=== PATIENT | female | born 1930 | race Caucasian/White ===

== ENCOUNTER → 2017-12-07 | Outpatient (CLI) | payer MEDICARE ==
[~2017-12-07] MED LIST: ALBU2.5V36 INH; ALBU8.5H12 IH; AMLO2.5T74 PO; ASC500 PO; ASPI-715 PO; BEN100 PO; CALC500T6 PO; CHOL200022 PO; CHOL500045 PO; CYCL10TA29 PO; DICL100G39 TOP; DONE10TA38 PO; DONE5TAB29 PO; FERR27TA3 PO; LEVO200T50 PO; LEVO25TA61 PO; LOR5/325 PO; LOVA20TA99 PO; METH25TA7 PO; MULT1TAB54 PO; NAPR500T31 PO; OXYGENHOME INH; PAN40 PO; PRED20TA6 PO; PROP20TA56 PO; PROP40TA45 PO; SIMV5TAB60 PO; SPIR1TAB26 PO; SUC1 PO
== END ==
LOC: ZZSPRING 00:43
PROVIDERS: ATTEND Family Medicine
DX: E03.9 Hypothyroidism, unspecified (principal); I10 Essential (primary) hypertension
CPT/HCPCS: 36415; 82310; 82374; 82435; 82565; 82947; 84132; 84295; 84443; 84520

== ENCOUNTER → 2018-01-27 | Outpatient (CLI) | payer MEDICARE, MEDICAID ==
[~2018-01-27] MED LIST changes: +RANI-318 PO
--- NOTE | 2018-01-27 09:01 | RADIOLOGY IMAGING REPORT ---
FACILITY: [facility] PATIENT NAME: Malini Thao : 1930 MR: [id number] V: [id number] EXAM DATE: ORDERING PHYSICIAN: SOFIA GARCIA TECHNOLOGIST: Location: [facility] Patient: Malini Thao : 1930 Visit/Account:[id number] Date of Sevice: 01/27/2018 ABD SINGLE ORGAN/QUAD/FOLLOWUP HISTORY: ruq pain COMPARISON: CT February 21, 2014 FINDINGS: Gallbladder: Unremarkable; no stones or sludge. Liver: Negative. Common duct: Normal, 4.7 mm diameter. Pancreas: Partially obscured by bowel, visualized aspects unremarkable. Right kidney: Right kidney measures 7.7 cm in length. No evidence of hydronephrosis Upper abdominal aorta and IVC: Patent. Ascites: None visualized. IMPRESSION: Unremarkable right upper quadrant ultrasound Report Dictated By: Sabina Colbert MD at 01/27/2018 8:51 AM Report E-Signed By: Sabina Colbert MD at 01/27/2018 8:56 AM WSN:[email or web address]
== END ==
LOC: US 00:52
PROVIDERS: ATTEND Family Medicine
DX: R10.11 Right upper quadrant pain (principal)
CPT/HCPCS: 76705

== ENCOUNTER → 2018-02-15 | Outpatient (CLI) | payer MEDICARE, MEDICAID | LOC: ZZSPRING 00:57 | DX: F03.90 Unspecified dementia, unspecified severity, without behavioral disturbance, psychotic disturbance, mood disturbance, and anxiety (principal); G25.0 Essential tremor | CPT/HCPCS: 36415; 82607 ==

== ENCOUNTER → 2018-03-01 | Outpatient (CLI) | payer MEDICARE | LOC: LAB 13:57 | PROVIDERS: ATTEND Nurse Practitioner | DX: L85.8 Other specified epidermal thickening (principal) | CPT/HCPCS: 88305 ==

== ENCOUNTER → 2018-06-21 | Outpatient (CLI) | payer MEDICARE ==
[~2018-06-21] MED LIST changes: +ACET-2146 PO; +CHOL200018 PO; -CHOL200022 PO; +GABA-547 PO
== END ==
LOC: ZZSPRING 05:59
PROVIDERS: ATTEND Family Medicine
DX: E03.9 Hypothyroidism, unspecified (principal); E78.5 Hyperlipidemia, unspecified; J44.1 Chronic obstructive pulmonary disease with (acute) exacerbation; R25.1 Tremor, unspecified; G30.9 Alzheimer's disease, unspecified
CPT/HCPCS: 36415; 82040; 82247; 82306; 82310; 82374; 82435; 82565; 82947; 84075; 84132; 84155; 84295; 84443; 84450; 84460; 84520; 85027

== ENCOUNTER → 2018-08-10 | Outpatient (REF) | payer MEDICARE | LOC: ZZSPRING 21:58 | PROVIDERS: ATTEND Family Medicine | DX: R30.0 Dysuria (principal); R35.0 Frequency of micturition; R39.15 Urgency of urination | CPT/HCPCS: 81001; 87088 ==

== ENCOUNTER → 2018-08-11 | Outpatient (CLI) | payer MEDICARE, MEDICAID ==
[2018-08-11 17:18] LABS: PLATELET COUNT, AUTOMATED 300 K/uL (150-450)
== END ==
LOC: LAB 17:05
PROVIDERS: ATTEND Family Medicine
DX: R41.0 Disorientation, unspecified (principal); R25.1 Tremor, unspecified; N39.0 Urinary tract infection, site not specified
CPT/HCPCS: 36415; 82040; 82247; 82310; 82374; 82435; 82565; 82947; 84075; 84132; 84155; 84295; 84450; 84460; 84520; 85025

== ENCOUNTER → 2018-12-06 | Outpatient (CLI) | payer MEDICARE, MEDICAID ==
[~2018-12-06] MED LIST changes: +CHOL100058 PO; +OSEL30CA2 PO; -SIMV5TAB60 PO; +SIMV5TAB69 PO
--- NOTE | 2018-12-06 15:13 | RADIOLOGY IMAGING REPORT ---
FACILITY: [facility] PATIENT NAME: Malini Thao : 1930 MR: [id number] V: [id number] EXAM DATE: ORDERING PHYSICIAN: SOFIA GARCIA TECHNOLOGIST: Location: [facility] Patient: Malini Thao : 1930 Visit/Account:[id number] Date of Sevice: 12/06/2018 DEXA Scan Clinical history: Postmenopausal. Comparison: DEXA scan from 02/21/2014. LUMBAR SPINE: The bone mineral density (BMD) measured from L1-L4 correlates with a Z-score of 0.1 and a T-score of -1.8 which is osteopenia as defined by the World Health Organization. The corresponding risk of frac ture in the lumbar spine is 3-4 times increased compared with a young adult reference population. Th is value has decrease by 2.7 % since the prior study. More than 5% change is considered significant. HIP: Bone mineral density (BMD) measured in the LEFT total hip region correlates with a Z-score 0.1 and a T-score of -2.2 which is osteopenia as defined by the World Health Organization. The corresponding r isk of fracture in the hip is 4-6 times increased compared to a young adult reference population. Thi s value has decrease by 8.5 % since the prior study. More than 5% change is considered significant. T score left femoral neck -2.8 Bone mineral density (BMD) measured in the Femoral Neck region measures 0.650 g/cm?. IMPRESSION: 1. Lumbar spine: Osteopenia. There has been 2.7% decrease in the bone mineral density since the pre vious exam. 2. Left Total Hip: Osteopenia. There has been 8.5% decrease in the bone mineral density since the p revious exam. 3. Femoral Neck: Bone Mineral Density is 0.650 g/cm? The next DEXA scan of this patient should include the following sites: L1-L4 and the left hip. FRAX? WHO Fracture Risk Assessment Tool link: <http://www.shef.ac.uk/FRAX/tool.jsp?locationValue=9> PLEASE NOTE: 1) The World Health Organization defines low BMD as follows: T-score Normal > -1 Osteopenia < -1 and > -2.5 Osteoporosis < -2.5 without fractures Established osteoporosis < -2.5 with fractures 2) In general, you may wish to consider: Diagnosis Treatment Follow-up DEXA Normal BMD Prevention 2-3 years Osteopenia Prevention/therapy 1-2 years Osteoporosis Therapy Yearly 3) Fracture risk estimated from the T-score is more accurate for vertebral fractures (often spontane ous) than for hip fractures. Report Dictated By: Sabina Colbert MD at 12/06/2018 3:06 PM Report E-Signed By: Sabina Colbert MD at 12/06/2018 3:08 PM NATEN:[email or web address]
== END ==
LOC: RAD 02:15
PROVIDERS: ATTEND Family Medicine
DX: Z13.820 Encounter for screening for osteoporosis (principal); M85.89 Other specified disorders of bone density and structure, multiple sites; Z78.0 Asymptomatic menopausal state
CPT/HCPCS: 77080

== ENCOUNTER 2019-01-06 08:12 | Emergency (ER) | payer MEDICARE, MEDICAID ==
[~2019-01-06 08:12] MED LIST changes: +ASPI-757 PO; +CALC1TAB24 PO; +DEXT1DRO16 OP; +GUAI237L36 PO; +IPRA3AMP10 IH; +LOPE2CAP15 PO
[2019-01-06 08:30] VITALS: BP 142/69
--- NOTE | 2019-01-06 08:45 | ER Report ---
History and Physical Time Seen By MD: 08:41 Hx. of Stated Complaint: patient resides at [facility]. staff noticed a large vein on her left lower leg this morning and they are concerned about a blood clot HPI/ROS CHIEF COMPLAINT: Concerns of distended vein in the left lower extremity HISTORY OF PRESENT ILLNESS: Patient is an 88-year-old female in a resident of [facility] is sent for evaluation for concern of a distended vein to her left lower extremity.Who is taking care of the patient noticed the pain and was concerned about possible DVT so she sent the patient in for evaluation. The patient herself is not complaining of any leg pain. She has no leg swelling and no overlying erythema. No history of fever. Patient denies any chest pain or shortness of breath. Patient's daughter accompanies patient and states that the vein has look like this for some time. Allergies: Coded Allergies: erythromycin base (Verified Allergy, Intermediate, ABD CRAMPING, 03/29/16) Home Meds Active Scripts Propranolol Hcl (PROPRANOLOL HCL) 20 Mg Tablet, 1 TAB PO BID for 90 Days, #180 TAB 4 Refills Prov:SOFIA GARCIA MD 12/01/18 Ranitidine Hcl (RANITIDINE HCL) 150 Mg Tablet, 150 MG PO QHS for 90 Days, #90 TAB 4 Refills Prov:SOFIA GARCIA MD 11/30/18 Diclofenac Sodium 1% Gel (VOLTAREN 1% GEL) 100 Gm Gel..gram., 2 GM TOP BID for 30 Days, #1 TUBE 4 Refills Prov:SOFIA GARCIA MD 11/14/18 Acetaminophen 500 Mg Tab (ACETAMINOPHEN EXTRA STRENGTH) 500 Mg Tablet, 2 TAB PO TID for 90 Days, #540 TAB 4 Refills Prov:SOFIA GARCIA MD 03/29/18 Levothyroxine Sodium (LEVOTHYROXINE SODIUM) 25 Mcg Tablet, 1 TAB PO QDAY, #90 TAB 4 Refills Prov:SOFIA GRACIA MD 01/19/18 Reported Medications Guaifenesin/Dextromethorphan (Robitussin Cough-Chest Dm Liq) 50 Mg-5 Mg/5 Ml Liquid, 5 ML PO Q4-6H PRN for COUGH 12/27/18 Aspirin (ASPIRIN) 325 Mg Tablet, 1 TAB PO ONCE PRN for CHEST PAIN, TAB 12/27/18 Dextran 70/Hypromellose/Pf (ARTIFICIAL TEARS DROPS) 1 Each Droperette, 1 GTT OP PRN 12/27/18 Loperamide HCl (Imodium A-D) 2 Mg Capsule, 1-2 TAB PO DIRECTED PRN for DIARRHEA 12/27/18 Calcium Carbonate/Mag Hydrox (ANTACID CHEWABLE TABLET) 1 Each Tab.chew, 2 TAB.CHEW PO Q2H PRN for prn, TAB.CHEW 12/27/18 Cholecalciferol (Vitamin D3) (VITAMIN D) 1,000 Unit Capsule, 1 CAP PO DAILY, CAPSULE 08/16/18 Oxygen (OXYGEN) Inha, 2 L INH countinuous, L 05/14/17 Discontinued Scripts Ipratropium/Albuterol Sulfate (IPRAT-ALBUT 0.5-3(2.5) MG/3 ML) 3 Ml Ampul.neb, 3 ML IH TID for 14 Days, #126 MOLLY Prov:SOFIA GARCIA MD 12/13/18 Past Medical/Surgical History History of hypertension, gastroesophageal reflux disease, arthritis, hypothyroidism Hx Smoking: No Smoking Status: Never Smoker Constitutional Vital Sign - Last 24 Hours 01/06/19 08:20 Temp 97.4 Pulse 74 Resp 24 B/P (MAP) 147/75 Pulse Ox 82 O2 Delivery Room Air Physical Exam General appearance: Alert no distress. Respiratory: Chest is non tender, lungs are clear to auscultation. Cardiac: Regular rate and rhythm Extremities: Examination of the left lower extremity shows distended anterior serpentine vessels without any overlying erythema. Patient has a negative Homans sign. The vessel was palpated along its entire course no palpable cord was felt. Patient has symmetry to both her calves. Bedside ultrasound was performed which showed incomplete compressibility of the dilated vessel in the left lower extremity as well as complete compression of the femoral vein from the groin down to the medial aspect of the left thigh. Medical Decision Making ED Course/Re-evaluation ED Course 01/06/2019 8:43:32 am patient sent for evaluation for possible venous thromboembolic disease. Bedside ultrasound shows complete compressibility of both of the vessel in question along with a proximal femoral vein no evidence of clot noted. I will discharge patient home at this time. Decision to Disposition Date: Jan 06, 2019 Decision to Disposition Time: 08:44 Depart Departure Latest Vital Signs Vital Signs Date Time Temp Pulse Resp B/P (MAP) Pulse Ox O2 Delivery O2 Flow Rate FiO2 01/06/19 08:20 97.4 74 24 147/75 82 Room Air Impression: Primary Impression: Distention of of vein Condition: Condition Unchanged Disposition: HOME OR SELF-CARE Referrals: SOFIA GARCIA MD (PCP) Patient Instructions: Varicose Veins (ED) GREGORIO MACKAY MD Jan 06, 2019 08:45
== END 2019-01-06 08:57 | disposition home or self-care (01) ==
LOC: ER 08:40
DX: I87.8 Other specified disorders of veins (principal)
CPT/HCPCS: 99284

== ENCOUNTER → 2019-03-21 | Outpatient (REF) | payer MEDICARE, MEDICAID ==
[~2019-03-21] MED LIST changes: +ACET-2031 PO; +CARB-340 OT; +CYAN100017 PO
== END ==
LOC: ZZSPRING 08:40
PROVIDERS: ATTEND Family Medicine
DX: R53.83 Other fatigue (principal)
CPT/HCPCS: 36415; 82040; 82247; 82310; 82374; 82435; 82565; 82947; 84075; 84132; 84155; 84295; 84443; 84450; 84460; 84520; 85027